=== PATIENT | female | born 1950 | race Caucasian/White ===

== ENCOUNTER → 2023-12-12 06:24 | Outpatient (REF) | payer MEDICARE, SELFPAY | LOC: MRI 06:24 | PROVIDERS: ATTENDING PHYSICIAN Physical Medicine & Rehabilitation; FAMILY PHYSICIAN Physician Assistant Medical | DX: M54.16 Radiculopathy, lumbar region (principal) | CPT/HCPCS: 72148 ==

== ENCOUNTER → 2024-02-18 10:44 | Outpatient (REF) | payer MEDICARE, SELFPAY | LOC: HWCARD 10:44 | PROVIDERS: ATTENDING PHYSICIAN Physical Medicine & Rehabilitation; FAMILY PHYSICIAN Physician Assistant Medical | DX: Z01.818 Encounter for other preprocedural examination (principal) | CPT/HCPCS: 93005 ==

== ENCOUNTER → 2024-07-18 09:55 | Outpatient (REF) | payer MEDICARE, SELFPAY | LOC: RAD 09:55 | PROVIDERS: ATTENDING PHYSICIAN Otolaryngology; FAMILY PHYSICIAN Physician Assistant Medical | DX: F02.A0 Dementia in other diseases classified elsewhere, mild, without behavioral disturbance, psychotic disturbance, mood disturbance, and anxiety (principal) | CPT/HCPCS: 74246 ==

== ENCOUNTER → 2024-12-12 14:22 | Outpatient (REF) | payer MEDICARE, SELFPAY | LOC: HWRAD 14:22 | PROVIDERS: ATTENDING PHYSICIAN Student in an Organized Health Care Education/Training Program | DX: R10.12 Left upper quadrant pain (principal) | CPT/HCPCS: 76700 ==